=== PATIENT | male | born 1985 | race Two or more races ===

== ENCOUNTER 2017-04-13 09:45 | Day surgery (SDC) | payer OTHER ==
[2017-04-13] VITALS (8 sets, daily range): BP systolic 111–136; BP diastolic 70–84
[~2017-04-13] VITALS: Ht 182.9 cm; Wt 94.8 kg
--- NOTE | 2017-04-13 07:15 | Pre-Procedure Note/Attestation ---
Pre-Procedure Note/Attestation Complete Prior to Procedure Planned Procedure: right Procedure Narrative: knee arthroscopy, possible synovectomy Indications for Procedure Pre-Operative Diagnosis: right knee acl sprain Attestation I attest that I discussed the nature of the procedure; its benefits; risks and complications; and alternatives (and the risks and benefits of such alternatives ), prior to the procedure, with the patient (or the patient's legal mill representative). I attest that, if there was a reasonable possibility of needing a blood transfusion, the patient (or the patient's legal mill representative) was given the [facility] standardized written summary, pursuant to the [place] Blood Safety Act ([place] Health and Safety Code # 1645, as amended). I attest that I re-evaluated the patient just prior to the surgery and that there has been no change in the patient's H&P, except as documented below: RUSTY ALONZO Apr 13, 2017 07:15
--- NOTE | 2017-04-13 07:16 | Operative Note - PDOC ---
Operative Note Operative Note Pre-op Diagnosis: right knee acl sprain Procedure: right knee arthroscopy Post-op Diagnosis: same as pre-op plus Operative Findings: consistent w/pre-op dx studies Anesthesia: regional Specimen: none Complications: none Condition: stable Estimated Blood Loss: none Implant(s) used?: RUSTY Tripp Apr 13, 2017 07:16
[~2017-04-13 09:45] MED LIST: Clindamycin 900mg 50 ML IV ONE; D5 1/2NS 1,000 ML IV SCH; HYDROmorphone 1mg/ml Carpuject SUBQ PRN; NKM; Norco 5mg/325mg tab ORAL PRN; Tylenol #3 tab (300mg/30mg) ORAL PRN
[2017-04-13] MEDS ORDERED: oxyCONTIN 20mg tab ORAL ONE (11:00)
[2017-04-13] MEDS ORDERED: Clindamycin 600mg/D5W 50ml Pre-Mix IV ONE (12:00)
[2017-04-13] MEDS ORDERED: Morphine Sulfate PF 10 ML ONE (12:45)
[2017-04-13] MEDS ORDERED: Kenalog-40 1ml Vial ONE (12:45)
[2017-04-13] MEDS ORDERED: Ketorolac 30mg Inj ONE ×2 (12:46→13:00)
[2017-04-13] MEDS ORDERED: Propofol 200mg/20ml IV ONE (12:46)
[2017-04-13] MEDS ORDERED: Lidocaine 1% 10mg/ml/Epi 0.005mg/ml 30ml vial INJ ONE (12:46)
[2017-04-13] MEDS ORDERED: EPINEPHrine 1mg/1ml Amp ONE (12:46)
[2017-04-13] MEDS ORDERED: Bupivacaine 0.25% Inj 30ml INJ ONE (12:46)
[2017-04-13] MEDS ORDERED: Bacitracin 50000 Units Vial ONE (12:47)
[2017-04-13] MEDS ORDERED: Lidocaine 1% MPF 10mg/ml 5ml ONE (13:00)
[2017-04-13] MEDS ORDERED: LR 1000ml ONE (13:00)
[2017-04-13] MEDS ORDERED: Midazolam 2mg/2ml Inj ONE (13:00)
[2017-04-13] MEDS ORDERED: fentaNYL 100 mcg/2 mL IV ONE (13:00)
[2017-04-13] MEDS ORDERED: Metoclopramide 10mg/2ml Inj ONE (13:00)
[2017-04-13] MEDS ORDERED: NS Irrig 4000ml IRRIG ONE (13:00)
[2017-04-13] MEDS ORDERED: Duramorph PF 10mg/10ml amp IV ONE (13:10)
[2017-04-13] MEDS ORDERED: Albuterol 90mcg Inhaler 8gm INH ONE (13:19)
--- NOTE | 2017-04-13 13:43 | Anethesia Preoperative Eval ---
Anesthesia Pre-op PMH/ROS General Date of Evaluation: Apr 13, 2017 Time of Evaluation: 13:40 Anesthesiologist: sergio ASA Score: ASA 2 Mallampati Score Class I : Soft palate, uvula, fauces, pillars visible Class II: Soft palate, uvula, fauces visible Class III: Soft palate, base of uvula visible Class IV: Only hard plate visible Mallampati Classification: Class II Surgeon: luly Diagnosis: right knee pain Surgical Procedure: right knee dx arthroscopy Anesthesia History: none Social History: smoking Family History: no anesthesia problems Allergies: Coded Allergies: CELECOXIB (Verified Allergy, Severe, hives, 04/12/17) IBUPROFEN (Verified Allergy, Severe, choke, hives, 04/12/17) PENICILLINS (Verified Allergy, Severe, choke, 04/12/17) TRAMADOL (Verified Allergy, Severe, hallucinations, 04/12/17) Medications: see eMAR Past Medical History Cardiovascular: Denies: HTN, CAD, [place], valve dz, arrhythmia, other Pulmonary: Reports: asthma Gastrointestinal/Genitourinary: Denies: GERD, CRI, ESRD, other Endocrine: Denies: DM, hypothyroidism, steroids, other HEENT: Denies: cataract (L), cataract (R), glaucoma, QAGAN TAYAGUNGIN (L), QAGAN TAYAGUNGIN (R), other Hematology/Immune: Denies: anemia, DVT, bleeding disorder, other Musculoskeletal/Integumentary: Denies: OA, RA, DJD, DDD, edema, other Anesthesia Pre-op Phys. Exam Physician Exam Last Vital Signs Date Time Temp Pulse Resp B/P (MAP) Pulse Ox O2 Delivery O2 Flow Rate FiO2 04/13/17 10:56 99.0 67 20 130/82 96 Room Air Constitutional: NAD Neurologic: CN 2-12 intact Cardiovascular: RRR Respiratory: CTA Gastrointestinal: S/NT/ND Airway Exam Mallampati Classification 2 Mallampati Score: Class II MO: full Neck: normal TMD: 2fb ROM: full Dentures: no upper, no lower Anesthesia Pre-op A/P Studies Pre-op Studies: EKG - sr Risk Assessment & Plan Plan: general Status Change Before Surgery: No Pre-Antibiotics Drug: ancef Given Within 1 Hr of Incision: Yes Time Given: 13:20 LILLY MAY CRNA Apr 13, 2017 13:43
[2017-04-13] MEDS ORDERED: Acetaminophen (Non formulary) 100 ML IV ONE (13:45)
[2017-04-13] MEDS ORDERED: fentaNYL 100 mcg/2 mL IV PRN (13:45)
[2017-04-13] MEDS ORDERED: Metoclopramide 10mg/2ml Inj IVP PRN (13:45)
--- NOTE | 2017-04-13 14:10 | Immediate Post-Op Evaluation ---
Immediate Post-Op Evalulation Immediate Post-Op Evalulation Procedure: right knee arthroscopy Date of Evaluation: Apr 13, 2017 Time of Evaluation: 14:09 Blood Pressure Systolic: 123 Blood Pressure Diastolic: 58 Pulse Rate: 82 Respiratory Rate: 14 O2 Sat by Pulse Oximetry: 100 Temperature (Fahrenheit): 97.8 Pain Score (1-10): 0 Nausea: No Vomiting: No Complications none Patient Status: awake, reacts Drug: ancef Given Within 1 Hr of Incision: Yes Time Given: 13:20 LILLY MAY CRNA Apr 13, 2017 14:10
--- NOTE | 2017-04-13 15:06 | 48 Hour Post Anesthesia Eval ---
Post Anesthesia Evaluation Procedure: right knee arthroscopy Date of Evaluation: Apr 13, 2017 Time of Evaluation: 15:06 Blood Pressure Systolic: 116 0: 78 Pulse Rate: 63 Respiratory Rate: 14 Temperature (Fahrenheit): 97.4 O2 Sat by Pulse Oximetry: 100 Airway: patent Nausea: No Vomiting: No Pain Intensity: 0 Hydration Status: adequate Cardiopulmonary Status: stable Mental Status/LOC: patient returned to baseline Post-Anesthesia Complications: none Follow-up care needed: N/A LILLY MAY CRNA Apr 13, 2017 15:06
--- NOTE | 2017-04-13 23:45 | Operative Note - Dictated ---
DATE OF OPERATION: 04/13/2017 POSTOPERATIVE DIAGNOSIS: 1. Right knee anterior cruciate ligament sprain. 2. Internal derangement of the right knee. POSTOPERATIVE DIAGNOSES: 1. Right knee traumatic medial plica. 2. Right knee anterior cruciate ligament partial tear. 3. Right knee lateral femoral condyle traumatic bony deformity. Procedure: 1. Right knee diagnostic arthroscopy 2. Right knee medial, lateral, and patellafemoral compartment synovectomy SURGEON: Edgardo Molina M.D. ANESTHESIA: MAC. INDICATION FOR PROCEDURE: The patient is a pleasant gentleman who had a very traumatic injury to his right knee. He subsequently had significant pain. He had an MRI, which showed a possible sprain of the ACL, but he had continued significant discomfort and instability in the right knee, and therefore, elected to undergo right knee diagnostic arthroscopy. We discussed with him that based on the intraoperative findings of the ACL, he may be a candidate for ACL reconstruction. In addition, the meniscus and cartilage will also be evaluated. All questions were addressed. DESCRIPTION OF PROCEDURE: An informed consent was obtained. The patient was brought to the operating room and placed supine under monitored anesthesia control. Tourniquet was applied to the right proximal thigh. Right leg was prepped and draped in a sterile manner. Time-out was performed. A 0.25% Marcaine plain was injected into the right knee. Portal sites were injected with 1% lidocaine with epinephrine. An inferolateral stab incision was then made. Trocar was introduced into the patellofemoral compartment. There was no significant chondral damage. There was what appeared to be a medial plica, which was very erythematous. Flexion and extension showed the plica to be rubbing against the the medial femoral condyle. The medial gutter was entered and was free from the meniscal chondral deformity and free of any loose bodies. Medial compartment was entered. There was some grade 2 chondral damage along the medial femoral condyle in the medial compartment. A medial working portal was established. Synovectomy in the anterior portion of the medial compartment was performed to better visualize the medial compartment. The meniscus was probed and noted to be intact. The remaining surface of the condyle was intact. The synovectomy was carried into the intercondylar notch and lateral compartment of the knee. ACL was probed and noted to be intact. There was a longitudinal split along the anterolateral condyle. The attachment along the femoral wall was intact. Given that there is a longitudinal tear and represented less than 25% of the ACL thickness, it was felt that he was not a candidate for reconstruction. At this point, the camera was repositioned in the lateral compartment. The lateral compartment was entered, free from meniscal chondral damage. However, there was an area where there was a concavity along the femoral condyle, which was inconsistent with normal anatomy, traumatic in nature given the associated injury to his ACL and the continued pain he had. At this point, the camera was repositioned in the patellafemoral compartment and synovectomy was completed. Once the medial plica was also excised along with the hypertrophic synovial tissue, there was no impingement with flexion and extension of any soft tissue in the patellofemoral compartment. At this point, the camera was removed. Portal sites were closed with 3-0 Monocryl suture. Steri-Strips and a sterile dressing were applied. The patient was awoken and taken to recovery room with stable vital signs. Intraarticular injection containing 0.25% Marcaine with epinephrine, 40 mg of Kenalog, 5 mL of Duramorph, and 30 mg of Toradol was injected. ESTIMATED BLOOD LOSS: None. COMPLICATIONS: None. SPECIMENS: None. Edgardo Molina M.D. DR: MUKESH JOB#: [id number] CC: ISSA
== END 2017-04-13 15:25 | disposition home or self-care (01) ==
LOC: SUR 09:45
DX: S83.511A Sprain of anterior cruciate ligament of right knee, initial encounter (principal); M67.51 Plica syndrome, right knee; M21.961 Unspecified acquired deformity of right lower leg; Z87.891 Personal history of nicotine dependence; X58.XXXA Exposure to other specified factors, initial encounter; Y93.9 Activity, unspecified; Y92.9 Unspecified place or not applicable; Z88.6 Allergy status to analgesic agent; Z88.0 Allergy status to penicillin
CPT/HCPCS: 29876; 97161; J0171; J0690; J1885; J2250; J2274; J2405; J2704; J2765; J3010; J3301; J3490; J7120; 94003; 94150

== ENCOUNTER 2018-03-01 08:22 | Day surgery (SDC) | payer OTHER ==
[~2018-03-01] VITALS: Ht 185.4 cm; Wt 97.5 kg
[2018-03-01] VITALS (10 sets, daily range): BP systolic 118–148; BP diastolic 75–90
--- NOTE | 2018-03-01 07:12 | Pre-Procedure Note/Attestation ---
Pre-Procedure Note/Attestation Complete Prior to Procedure Planned Procedure: right Procedure Narrative: hip arthroscopy, possible labral repair Indications for Procedure Pre-Operative Diagnosis: right hip labral tear Attestation I attest that I discussed the nature of the procedure; its benefits; risks and complications; and alternatives (and the risks and benefits of such alternatives ), prior to the procedure, with the patient (or the patient's legal dermatology sales representative). I attest that, if there was a reasonable possibility of needing a blood transfusion, the patient (or the patient's legal dermatology sales representative) was given the [facility] standardized written summary, pursuant to the [place] Blood Safety Act ([place] Health and Safety Code # 1645, as amended). I attest that I re-evaluated the patient just prior to the surgery and that there has been no change in the patient's H&P, except as documented below: Edgardo Molina MD Mar 01, 2018 07:12
--- NOTE | 2018-03-01 07:12 | Operative Note - PDOC ---
Operative Note Operative Note Pre-op Diagnosis: right hip labral tear Procedure: see op report Post-op Diagnosis: same as pre-op plus Operative Findings: consistent w/pre-op dx studies Anesthesia: general Specimen: none Complications: none Condition: stable Estimated Blood Loss: none Implant(s) used?: No Edgardo Molina MD Mar 01, 2018 07:12
[~2018-03-01 08:22] MED LIST changes: +ACETAMINOPHEN-1 EAC2 ORAL; +Clindamycin 600mg/D5W 50ml IV ONE; -Clindamycin 900mg 50 ML IV ONE; -D5 1/2NS 1,000 ML IV SCH; -HYDROmorphone 1mg/ml Carpuject SUBQ PRN; -Norco 5mg/325mg tab ORAL PRN; -Tylenol #3 tab (300mg/30mg) ORAL PRN; +VENTOLIN HFA18 GM INH; +oxyCONTIN 20mg tab ORAL ONE
[2018-03-01] MEDS ORDERED: oxyCONTIN 20mg tab ORAL ONE (09:41)
[2018-03-01] MEDS ORDERED: fentaNYL 100 mcg/2 mL IV ONE (10:04)
[2018-03-01] MEDS ORDERED: Midazolam 2mg/2ml Inj ONE (10:05)
[2018-03-01] MEDS ORDERED: Propofol 200mg/20ml IV ONE (10:08)
[2018-03-01] MEDS ORDERED: Lidocaine 1% MPF 10mg/ml 5ml ONE (10:08)
[2018-03-01] MEDS ORDERED: EPINEPHrine 1mg/1ml Amp ONE (10:34)
[2018-03-01] MEDS ORDERED: Ketorolac 30mg Inj ONE (10:34)
[2018-03-01] MEDS ORDERED: Kenalog-40 1ml Vial ONE (10:34)
[2018-03-01] MEDS ORDERED: Bupivacaine w/Epi 0.25% 30ml Vial INJ ONE (10:35)
[2018-03-01] MEDS ORDERED: Bupivacaine 0.5% Inj 30 ml vial INJ ONE (10:35)
[2018-03-01] MEDS ORDERED: Zemuron 50mg/5ml Inj IV ONE (10:47)
[2018-03-01] MEDS ORDERED: Vancomycin 1gm inj IVPB ONE (10:47)
[2018-03-01] MEDS ORDERED: Succinylcholine 20mg/ml 10ml vial ONE (10:47)
[2018-03-01] MEDS ORDERED: NS Irrig 4000ml IRRIG ONE ×2 (11:26→12:00)
[2018-03-01] MEDS ORDERED: LR 1000ml ONE (11:26)
[2018-03-01] MEDS ORDERED: Duramorph PF 10mg/10ml amp ONE (11:26)
--- NOTE | 2018-03-01 12:28 | Anethesia Preoperative Eval ---
Anesthesia Pre-op PMH/ROS General Date of Evaluation: Mar 01, 2018 Time of Evaluation: 11:20 Anesthesiologist: Gustavo ASA Score: ASA 2 Mallampati Score Class I : Soft palate, uvula, fauces, pillars visible Class II: Soft palate, uvula, fauces visible Class III: Soft palate, base of uvula visible Class IV: Only hard plate visible Mallampati Classification: Class II Surgeon: Jesse Diagnosis: R hip pain Surgical Procedure: R hip arthroscopy Anesthesia History: none Family History: no anesthesia problems Allergies: Coded Allergies: AMOXICILLIN (Verified Allergy, Severe, 02/28/18) HIVES,SKIN RASH AND CHOKING CELECOXIB (Verified Allergy, Severe, hives, 04/12/17) IBUPROFEN (Verified Allergy, Severe, choke, hives, 04/12/17) PENICILLINS (Verified Allergy, Severe, choke, 02/28/18) RESPIRATORY DISTRESS,SKIN RASH TRAMADOL (Verified Allergy, Severe, hallucinations, 02/28/18) VERTIGO Medications: see eMAR Patient NPO?: Yes Past Medical History Cardiovascular: Denies: HTN, CAD, [place], valve dz, arrhythmia, other Pulmonary: Reports: asthma - mild occasional inhaler use; Denies: COPD, [place], other Gastrointestinal/Genitourinary: Reports: GERD - mild; Denies: CRI, ESRD, other Neurologic/Psychiatric: Reports: other - chronic pain; Denies: dementia, CVA, depression/anxiety, TIA Endocrine: Denies: DM, hypothyroidism, steroids, other HEENT: Denies: cataract (L), cataract (R), glaucoma, BE[place] (L), BEAVER (R), other Hematology/Immune: Denies: anemia, DVT, bleeding disorder, other Musculoskeletal/Integumentary: Reports: other - mild psoriasis; Denies: OA, RA, DJD, DDD, edema PMH Narrative: as above PSxH Narrative: ACL repair R. Shoulder arthroscopy, appendectomy Anesthesia Pre-op Phys. Exam Physician Exam Last Vital Signs Date Time Temp Pulse Resp B/P (MAP) Pulse Ox O2 Delivery O2 Flow Rate FiO2 03/01/18 09:15 97.5 68 20 118/77 97 Room Air Constitutional: NAD Neurologic: CN 2-12 intact Cardiovascular: RRR, no M/R/G Respiratory: CTA Gastrointestinal: S/NT/ND Airway Exam Mallampati Score: Class II MO: full Neck: Flexible ROM: full Teeth: intact Dentures: no upper, no lower Anesthesia Pre-op A/P Labs see chart Studies Pre-op Studies: EKG - NSR Risk Assessment & Plan Assessment: ASA2 Plan: GA with ETT Status Change Before Surgery: No Pre-Antibiotics Drug: Vancomycin 1gr. Given Within 1 Hr of Incision: Yes Time Given: 11:50 Micah Chen MD Mar 01, 2018 12:28
[2018-03-01] MEDS ORDERED: LR 1000ml 1,000 ML IVLG SCH (12:29)
[2018-03-01] MEDS ORDERED: Meperidine 50mg/ml Inj(FOR RIGORS ONLY) IV PRN (12:30)
[2018-03-01] MEDS ORDERED: Midazolam 2mg/2ml Inj IVP PRN (12:30)
[2018-03-01] MEDS ORDERED: Metoclopramide 10mg/2ml Inj IVP PRN (12:30)
[2018-03-01] MEDS ORDERED: fentaNYL 100 mcg/2 mL IV PRN (12:30)
[2018-03-01] MEDS ORDERED: DiphenhydrAMINE 50mg/ml Inj IVP PRN (12:30)
[2018-03-01] MEDS ORDERED: Acetaminophen (Non formulary) 100 ML IV ONE (12:45)
--- NOTE | 2018-03-01 14:47 | Immediate Post-Op Evaluation ---
Immediate Post-Op Evalulation Immediate Post-Op Evalulation Procedure: R hip arthroscopy, labrum rearangement Date of Evaluation: Mar 01, 2018 Time of Evaluation: 14:46 IV Fluids: 1200 Blood Products: none Estimated Blood Loss: <50 Urinary Output: none Blood Pressure Systolic: 138 Blood Pressure Diastolic: 76 Pulse Rate: 86 Respiratory Rate: 22 O2 Sat by Pulse Oximetry: 99 Temperature (Fahrenheit): 97.8 Pain Score (1-10): 2 Nausea: No Vomiting: No Complications none Patient Status: reacts, patent, extubated, none Hydration Status: adequate Micah Chen MD Mar 01, 2018 14:47
--- NOTE | 2018-03-01 15:29 | 48 Hour Post Anesthesia Eval ---
Post Anesthesia Evaluation Procedure: R hip arthroscopy, labrum rearangement Date of Evaluation: Mar 01, 2018 Time of Evaluation: 15:28 Blood Pressure Systolic: 125 0: 77 Pulse Rate: 82 Respiratory Rate: 20 Temperature (Fahrenheit): 97.6 O2 Sat by Pulse Oximetry: 98 Airway: patent Nausea: No Vomiting: No Pain Intensity: 3 Hydration Status: adequate Cardiopulmonary Status: stable Mental Status/LOC: patient returned to baseline Follow-up Care/Observations: n/a Post-Anesthesia Complications: none Follow-up care needed: ready to discharge Micah Chen MD Mar 01, 2018 15:29
[2018-03-01] MEDS ORDERED: Norco 5mg/325mg tab ORAL PRN (16:00)
[2018-03-01] MEDS ORDERED: Tylenol #3 tab (300mg/30mg) ORAL PRN (16:00)
[2018-03-01] MEDS ORDERED: D5 1/2NS 1,000 ML IV SCH (16:00)
[2018-03-01] MEDS ORDERED: HYDROmorphone 1mg/ml Carpuject SUBQ PRN (16:00)
--- NOTE | 2018-03-01 23:16 | Operative Note - Dictated ---
DATE OF OPERATION: 03/01/2018 PREOPERATIVE DIAGNOSIS: Right hip labral tear. POSTOPERATIVE DIAGNOSIS: Right hip labral tear. PROCEDURES: 1. Right hip arthroscopy and synovectomy. 2. Right hip arthroscopic labral debridement. SURGEON: Edgardo Molina M.D. ANESTHESIA: General. INDICATION FOR PROCEDURE: The patient is a pleasant gentleman, who has had a fall. He had a tear of the anterior labrum and had continued symptoms. It was elected to undergo right hip arthroscopy and possible labral repair versus debridement. Risks, limitations, expectations, and complications of the procedure were discussed in detail. All questions were addressed. DESCRIPTION OF PROCEDURE: After informed consent was obtained, the patient was brought to the operating room. The patient was placed under general anesthesia. The patient was then carefully placed on fracture table. The hip was then carefully distracted using fluoroscopic imaging. A spinal needle was then placed. It did break the wound vacuum seal on the hip allowing further distraction. After approximately 15-20 mm, hip distraction was obtained. The right hip was prepped and draped in sterile manner. Time-out was performed. Ancef was administered. Spinal needle was then placed for the anterior portal. Once the spinal needle was placed, a flexible guidewire was placed in the hip joint. Once that was completed, a trocar was then introduced. Once that was done, an anterolateral portal was established using outside-in technique with spinal needle. Once adequate position was confirmed, a flexible guidewire was then placed along with a second access of portal. At this point, a capsulectomy was performed to rule out mobilization of the access portals. There was a horizontal tear through the labrum with a displaced fragment of the labrum into the hip joint. There was no significant chondral damage of the acetabulum or femoral head. The labrum was evaluated from both portals and we felt that formal repair was not possible given the nature of the tear and the fact that the labral tissue was pretty damaged. Therefore, it was debrided down to stable rim of tissue. Once the debridement was completed, the instruments were removed. The portal sites were closed with 3-0 Monocryl sutures. Compression dressing was applied. The patient was awoken and taken to recovery room with stable vital signs. ESTIMATED BLOOD LOSS: None. COMPLICATIONS: None. SPECIMENS: None. IMPLANTS: None. Edgardo Molina M.D. DR: Ivania JOB#: [id number] CC: ISSA
== END 2018-03-01 17:30 | disposition home or self-care (01) ==
LOC: SUR 08:22
DX: S73.191A Other sprain of right hip, initial encounter (principal); L40.9 Psoriasis, unspecified; L30.9 Dermatitis, unspecified; J45.909 Unspecified asthma, uncomplicated; K21.9 Gastro-esophageal reflux disease without esophagitis; G89.29 Other chronic pain; F17.210 Nicotine dependence, cigarettes, uncomplicated; Z88.5 Allergy status to narcotic agent; Z88.0 Allergy status to penicillin; Z88.8 Allergy status to other drugs, medicaments and biological substances
CPT/HCPCS: 29862; 29863; 73501; 76001; J0171; J0330; J2175; J2250; J2274; J2405; J2704; J3010; J3370; 94003; 94150